=== PATIENT | female | born 2000 | race Asian ===

== ENCOUNTER 2023-04-17 08:00 | Outpatient (CLI) | payer OTHER | END 2023-04-17 23:59 | disposition home or self-care (01) | LOC: LAB.N 08:00 | PROVIDERS: ATTEND Physician Assistant Medical | DX: N30.01 Acute cystitis with hematuria (principal) | CPT/HCPCS: 87086; 87181 ==

== ENCOUNTER 2023-12-25 09:00 | Outpatient (CLI) | payer OTHER ==
[2023-12-28 09:09] LABS: LYME TOTAL AB CIA Negative (Negative)
== END 2023-12-25 09:15 | disposition home or self-care (01) ==
LOC: LAB.N 09:00
PROVIDERS: ATTEND Physician Assistant Medical
DX: A26.0 Cutaneous erysipeloid (principal)
CPT/HCPCS: 36415; 86618